=== PATIENT | male | born 1955 | race Caucasian/White ===

== ENCOUNTER → 2018-04-01 08:27 | Outpatient (CLI) | payer MEDICARE, BC, SELFPAY ==
[2018-04-01 10:27] LABS: Add Manual Diff / Slide Review NO; Basophils Percent Auto 0.5 % (0-2); Eosinophils Percent Auto 3.3 % (2-4); Hematocrit 44.1 % (41-53); Lymphocytes Percent Auto 31.5 % (25-40); Mean Corpuscular HGB Conc 34.1 % (30-36); Monocytes Percent Auto 11.3 % (3-14); Neutrophils Absolute Auto 3400 /uL (3000-5900); Neutrophils Percent Auto 53.4 % (50-75); Platelet Count 218 X10^3/uL (150-400); Red Blood Cell Count 4.69 X10^6/uL (4.5-5.9); Red Cell Distribution Width 13.2 % (11.6-14.8); White Blood Cell Count 6.3 X10^3/uL (4.5-11.0)
[2018-04-01 10:49] LABS: Alanine Aminotransferase 26 IU/L (21-72); Albumin 4.6 g/dL (3.5-5.0); Albumin Globulin Ratio 1.7 (1.0-2.8); Alkaline Phosphatase 51 U/L (38-126); Aspartate Aminotransferase 21 IU/L (17-59); BUN Creatinine Ratio 31.4 (6-22); Bilirubin Total 0.8 mg/dL (0.2-1.3); Blood Urea Nitrogen 22 mg/dL (9-20); Calcium 9.4 mg/dL (8.4-10.2); Carbon Dioxide 28 mmol/L (22-32); Chloride 101 mmol/L (98-107); Cholesterol 209 mg/dL (140-199); Estimated Glomerular Filt Rate > 60.0 mL/min (>60); Globulin 2.7 g/dL (1.7-4.1); Glucose 102 mg/dL (80-110); HDL Cholesterol 60 mg/dL (40-60); HEMOLYSIS < 15 (0-50); LDL Cholesterol Calculated 123 mg/dL (<100); Potassium 4.5 mmol/L (3.4-5.1); Sodium 139 mmol/L (137-145); Total Protein 7.3 g/dL (6.3-8.2); Triglycerides 128 mg/dL (35-150)
[2018-04-01 11:14] LABS: Prostate Specific Antigen Scrn 1.13 ng/mL (0.1-4.0)
[2018-04-01 11:15] LABS: Thyroid Stimulating Hormone 2.58 uIU/mL (0.47-4.68)
== END ==
PROVIDERS: PCP Family Medicine; Visit Provider Family Medicine
DX: E04.1 Nontoxic single thyroid nodule (principal); E78.2 Mixed hyperlipidemia; I10 Essential (primary) hypertension; R09.89 Other specified symptoms and signs involving the circulatory and respiratory systems
CPT/HCPCS: 36415; 80053; 80061; 84443; 85025; G0103

== ENCOUNTER → 2018-04-07 10:43 | Outpatient (CLI) | payer MEDICARE, OTHER, SELFPAY ==
--- NOTE | 2018-04-07 10:46 | DI.RAD.S_ITS ---
PROCEDURE: XR CHEST 2V INDICATIONS: sob TECHNIQUE: 2 views of the chest were acquired. COMPARISON: [facility], , CHEST 2 VIEW, 07/25/2013, 11:57. FINDINGS: Surgical changes and devices: Surgical plate on the humerus partially seen Lungs and pleura: No pleural effusions or pneumothorax. Lungs are clear. Mediastinum: Mediastinal contours are normal. Heart size is normal. Bones and chest wall: No suspicious bony abnormalities. Soft tissues appear unremarkable. IMPRESSION: No acute cardiopulmonary abnormality Dictated by: Chucky Thurman M.D. on 04/07/2018 at 12:43 Approved by: Chucky Thurman M.D. on 04/07/2018 at 12:45
== END ==
PROVIDERS: Family Provider Family Medicine; PCP Family Medicine; Visit Provider Family Medicine
DX: R06.02 Shortness of breath (principal)
CPT/HCPCS: 71046

== ENCOUNTER → 2020-02-09 14:33 | Outpatient (CLI) | payer MEDICARE, OTHER, SELFPAY ==
--- NOTE | 2020-02-09 14:37 | DI.RAD.S_ITS ---
PROCEDURE: XR FINGER RT MIN 2V INDICATIONS: injury/pain/ TECHNIQUE: AP hand, 2 views of the fifth finger(s) acquired. COMPARISON: None. FINDINGS: Bones: Volar plate fracture involving the base of the fifth middle phalanx seen best on the lateral view. Mild interphalangeal joint narrowing with periarticular osteophyte formation. Soft tissues: No suspicious soft tissue calcifications. IMPRESSION: Volar plate fracture involving the base of the fifth middle phalanx. Dictated by: Jin Ward [facility] Interpreted: Dulce Maria Oropeza MD on 02/09/2020 at 15:28 Approved by: Dulce Maria Oropeza MD, PhD on 02/09/2020 at 16:29
== END ==
PROVIDERS: Family Provider Family Medicine; PCP Family Medicine; Referring Provider Family Medicine; Visit Provider Family Medicine
DX: M79.644 Pain in right finger(s) (principal); S62.626A Displaced fracture of middle phalanx of right little finger, initial encounter for closed fracture; X58.XXXA Exposure to other specified factors, initial encounter
CPT/HCPCS: 73140

== ENCOUNTER → 2020-05-21 13:29 | Outpatient (CLI) | payer MEDICARE, OTHER, SELFPAY ==
[2020-05-22 14:16] LABS: COVID19 Sendout Not Detected (Not Detect)
== END ==
PROVIDERS: Family Provider Family Medicine; PCP Family Medicine; Visit Provider Physician Assistant
DX: Z11.59 Encounter for screening for other viral diseases (principal)
CPT/HCPCS: 87635

== ENCOUNTER → 2020-05-24 13:18 | Outpatient (CLI) | payer MEDICARE, OTHER, SELFPAY ==
--- NOTE | 2020-05-24 14:29 | PM.TREADMILL ---
Cardiac Stress Test Report Referral & Results Date Patient Seen: 05/24/20 Requesting provider: Sean Norman Indication: dyspnea Rest ECG: unremarkable Procedure Note: Today following both written and verbal informed consent, the patient was exercised according to a standard Georges protocol. The patient exercised for a total of my and 16 seconds achieving a maximum heart rate of 147. Patient's maximum systolic blood pressure was 190. This was an estimated 10.1 MET's. there are no ST-T segment changes Patient did have multifocal PVCs including couplets and in recovery also had a 9 beat run of nonsustained VT Patient's oxygen saturation varied between 93 and 96% for the duration of the monitoring period. Function aerobic impairment rates -20% on the sedentary scale or 120% of average Impression: no clear evidence of ischemia based on usual criteria Significant ventricular dysrhythmias above, suggest echo and consider longer cardiac monitoring such as 7-14 day Zio Please note: Actual ECG tracings can be found in the PACS system.
== END ==
PROVIDERS: Family Provider Family Medicine; PCP Family Medicine; Referring Provider Family Medicine; Visit Provider Family Medicine
DX: R06.00 Dyspnea, unspecified (principal); R06.02 Shortness of breath
CPT/HCPCS: 93016; 93017; 93018

== ENCOUNTER → 2020-06-03 09:33 | Outpatient (CLI) | payer MEDICARE, OTHER, SELFPAY ==
[2020-06-03 09:56] LABS: Add Manual Diff / Slide Review NO; Basophils Absolute Auto 100 /uL (0-100); Basophils Percent Auto 0.9 % (0-2); Eosinophils Absolute Auto 300 /uL (0-450); Eosinophils Percent Auto 5.1 % (2-4); Hematocrit 42.5 % (41-53); Hemoglobin 14.4 g/dL (13.5-17.5); Lymphocytes Absolute Auto 2100 /uL (1100-4500); Lymphocytes Percent Auto 34.2 % (25-40); Mean Corpuscular HGB Conc 33.8 % (30-36); Mean Corpuscular Hemoglobin 31.7 PG (26-34); Mean Corpuscular Volume 93.6 fL (80-100); Monocytes Absolute Auto 800 /uL (0-900); Monocytes Percent Auto 13.1 % (3-14); Neutrophils Absolute Auto 2800 /uL (1500-7000); Neutrophils Percent Auto 46.7 % (50-75); Platelet Count 203 X10^3/uL (150-400); Red Blood Cell Count 4.54 X10^6/uL (4.5-5.9); Red Cell Distribution Width 13.2 % (11.6-14.8); White Blood Cell Count 6.1 X10^3/uL (4.5-11.0)
[2020-06-03 10:09] LABS: Alanine Aminotransferase 26 IU/L (<50); Albumin 4.4 g/dL (3.5-5.0); Albumin Globulin Ratio 1.4 (1.0-2.8); Alkaline Phosphatase 57 U/L (38-126); Aspartate Aminotransferase 24 IU/L (17-59); BUN Creatinine Ratio 36.4 (6-22); Bilirubin Total 0.8 mg/dL (0.2-1.3); Blood Urea Nitrogen 24 mg/dL (9-20); Carbon Dioxide 28 mmol/L (22-32); Chloride 104 mmol/L (98-107); Cholesterol 202 mg/dL (140-199); Estimated Glomerular Filt Rate > 60.0 mL/min (>60); Globulin 3.2 g/dL (1.7-4.1); Glucose 103 mg/dL (80-110); HDL Cholesterol 56 mg/dL (40-60); HEMOLYSIS < 15 (0-50); LDL Cholesterol Calculated 121 mg/dL (<100); Potassium 4.7 mmol/L (3.4-5.1); Sodium 139 mmol/L (137-145); Total Protein 7.6 g/dL (6.3-8.2); Triglycerides 126 mg/dL (35-150)
[2020-06-03 10:39] LABS: Prostate Specific Antigen Scrn 1.28 ng/mL (0.1-4.0)
[2020-06-03 10:40] LABS: TSH w/ Reflex to FT4 1.92 uIU/mL (0.47-4.68)
== END ==
PROVIDERS: Family Provider Family Medicine; PCP Family Medicine; Referring Provider Family Medicine; Visit Provider Family Medicine
DX: E78.2 Mixed hyperlipidemia (principal)
CPT/HCPCS: 36415; 80053; 80061; 84443; 85025; G0103

== ENCOUNTER → 2020-06-11 08:00 | Outpatient (CLI) | payer MEDICARE, OTHER, SELFPAY ==
--- NOTE | 2020-06-11 08:02 | DI.ECHO.S_ITS ---
[facility]---------+ [facility] +---------+ : : [address] : : : : [id number] : : : : Phone: [phone]+ Echocardiogram Report + + :Name: ARNEL RANGEL Study Date: 06/11/2020 Height: 76 in : :[facility] Weight: 210 lb : : Gender: Male BSA: 2.3 m2 : :: 1955 Age: 65 yrs BP: 140/78 mmHg: :Reason For Study: ARRHYTHMIA : : Performed By: Carl Aguirre : :Referring: RICH PICHARDO : + + Interpretation Summary Left ventricular ejection fraction is estimated to be 35 +/- 5%. There is moderate global hypokinesis of the left ventricle. Procedure: A two-dimensional transthoracic echocardiogram with color flow and Doppler was performed. The study quality was technically good. There is no prior echocardiogram noted for this patient. The patient was in normal sinus rhythm during the exam. Left Ventricle: The left ventricle is normal in size. There is normal left ventricular wall thickness. Left ventricular ejection fraction is estimated to be 35 +/- 5%. There is moderate global hypokinesis of the left ventricle. Right Ventricle: The right ventricle is normal in size and function. Atria: The left atrium is moderately dilated. Right atrial size is normal. Mitral Valve: There is mild mitral annular calcification. There is trace mitral regurgitation. Aortic Valve: The aortic valve is trileaflet. The aortic valve opens well. No aortic regurgitation is present. Tricuspid Valve: The tricuspid valve is normal in structure and function. There is trace tricuspid regurgitation. The right ventricular systolic pressure is estimated to be at least 22 mmHg based on an estimated right atrial pressure of 3 mm Hg. Pulmonic Valve: The pulmonic valve is normal in structure and function. There is trace pulmonic regurgitation. Great Vessels: The aortic root is mildly dilated. The ascending aorta is mildly enlarged. The pulmonary artery is normal size. The IVC is of normal diameter and collapses greater than 50% with a sniff. This suggests a low right atrial pressure of 3 mm Hg. Pericardium/ Pleura There is no pericardial effusion. There is no pleural effusion. MMode/2D Measurements & Calculations LVIDd: 6.2 cm LVOT diam: 2.6 cm LVIDs: 4.6 cm Ao root diam: 4.6 cm FS: 24.9 % asc Aorta Diam: 3.7 cm EPSS: 1.6 cm Ao Arch Diam (Prox Trans): 3.2 cm IVSd: 0.78 cm LVPWd: 0.76 cm LV polanco. diameter/BSA (cm/m^2): 2.7 LV sys. diameter/BSA (cm/m^2): 2.1 LA dimension: 3.6 cm RA long axis: 4.9 cm LA A2 area: 29.9 cm2 RA area: 20.4 cm2 LA A4 area: 24.7 cm2 RA vol: 71.9 ml LA length (vol): 6.0 cm RA : 31.8 ml/m2 LA vol: 103.7 ml IVC diam: 1.6 cm LA vol index: 45.8 ml/m2 TAPSE: 2.4 cm Doppler Measurements & Calculations Ao V2 max: 114.5 cm/sec LVOT Max Bennett: 71.6 cm/sec Ao V2 mean: 89.9 cm/sec LV V1 max P.1 mmHg Ao max P.2 mmHg LV V1 VTI: 14.1 cm Ao mean P.4 mmHg ANKUR(I,D): 2.9 cm2 Ao V2 VTI: 25.2 cm ANKUR(V,D): 3.2 cm2 sev ratio: 0.56 ANKUR indexed to BSA (cm^2/m^2): 1.3 MV E max bennett: 70.2 cm/sec TR max bennett: 215.2 cm/sec MV A max bennett: 99.6 cm/sec TR max P.5 mmHg MV E/A: 0.71 PA V2 max: 78.4 cm/sec Med Peak E' Bennett: 4.2 cm/sec PA V2 mean: 57.5 cm/sec E/E' med: 16.7 PA mean P.4 mmHg Lat Peak E' Bennett: 3.8 cm/sec PA pr(Accel): 24.2 mmHg E/E' lat: 18.5 E/e' average: 17.6 MV dec time: 0.18 sec SV(LVOT): 73.1 ml Reading Physician:09:55 AM
== END ==
PROVIDERS: Family Provider Family Medicine; PCP Family Medicine; Referring Provider Family Medicine; Visit Provider Family Medicine
DX: I49.9 Cardiac arrhythmia, unspecified (principal); I77.89 Other specified disorders of arteries and arterioles
CPT/HCPCS: 93306

== ENCOUNTER → 2020-06-13 11:45 | Outpatient (CLI) | payer MEDICARE, OTHER, SELFPAY ==
--- NOTE | 2020-06-28 16:57 | PM.CARDMON.1 ---
[facility] Report Referral & Results Date Patient Seen: 06/13/20 Requesting provider: Sean Norman Indication: Arrhythmia Duration of monitoring (days): 7 Diary information: There were 5 patient triggered events and 2 patient diary entries Patient triggered events were associated with (within 45 seconds) sinus rhythm, PVCs, PACs, and ventricular bigeminy Patient diary entries were associated with sinus rhythm and PVCs Data: Minimum heart rate identified was 43 beats per minute at 08:01 on 06/15/2020 Maximum sinus heart rate was 133 beats per minute at 16:39 on 06/16/2020 Maximum overall heart rate was 190 beats per minute at 11:08 on 06/18/2020 during a 6 beat run of SVT Less than 1% of identified beats were supraventricular ectopic in origin. 3.3% of identified beats were ventricular ectopic in origin Patient had 1 run of nonsustained ventricular tachycardia lasting 4 beats at a rate of 134 beats per minute 12 runs of SVT were identified with the fastest being 6 beats at a rate of 190 in the longest lasting 14 seconds at a rate of 105 beats per minute, which suggest atrial tachycardia rather than true SVT Impression: Most significant dysrhythmia identified on this study is the occasional PVCs. 1 single run of nonsustained VT also present. Clinical correlation suggested
== END ==
PROVIDERS: Family Provider Family Medicine; PCP Family Medicine; Referring Provider Family Medicine; Visit Provider Family Medicine
DX: I49.9 Cardiac arrhythmia, unspecified (principal)
CPT/HCPCS: 0296T; 0298T

== ENCOUNTER → 2020-11-05 08:48 | Outpatient (CLI) | payer MEDICARE, OTHER, SELFPAY ==
[2020-11-05 09:39] LABS: Add Manual Diff / Slide Review NO; Basophils Absolute Auto 0 /uL (0-100); Basophils Percent Auto 0.5 % (0-2); Eosinophils Absolute Auto 400 /uL (0-450); Hematocrit 41.5 % (41-53); Hemoglobin 13.9 g/dL (13.5-17.5); Lymphocytes Absolute Auto 1600 /uL (1100-4500); Mean Corpuscular HGB Conc 33.6 % (30-36); Mean Corpuscular Hemoglobin 30.9 PG (26-34); Mean Corpuscular Volume 91.9 fL (80-100); Monocytes Absolute Auto 800 /uL (0-900); Monocytes Percent Auto 13.9 % (3-14); Neutrophils Absolute Auto 2800 /uL (1500-7000); Neutrophils Percent Auto 49.6 % (50-75); Platelet Count 200 X10^3/uL (150-400); Red Blood Cell Count 4.51 X10^6/uL (4.5-5.9); Red Cell Distribution Width 13.1 % (11.6-14.8); White Blood Cell Count 5.6 X10^3/uL (4.5-11.0)
[2020-11-05 10:02] LABS: BUN Creatinine Ratio 40.9 (6-22); Blood Urea Nitrogen 27 mg/dL (9-20); Calcium 9.2 mg/dL (8.4-10.2); Carbon Dioxide 28 mmol/L (22-32); Chloride 103 mmol/L (98-107); Cholesterol 148 mg/dL (140-199); Estimated Glomerular Filt Rate > 60.0 mL/min (>60); Glucose 119 mg/dL (80-110); HDL Cholesterol 47 mg/dL (40-60); HEMOLYSIS < 15 (0-50); LDL Cholesterol Calculated 90 mg/dL (<100); Potassium 4.6 mmol/L (3.4-5.1); Sodium 138 mmol/L (137-145); Triglycerides 57 mg/dL (35-150)
== END ==
PROVIDERS: Family Provider Family Medicine; PCP Student in an Organized Health Care Education/Training Program; Referring Provider Internal Medicine Cardiovascular Disease; Visit Provider Internal Medicine Cardiovascular Disease
DX: I10 Essential (primary) hypertension (principal); E78.5 Hyperlipidemia, unspecified
CPT/HCPCS: 36415; 80048; 80061; 85025

== ENCOUNTER → 2021-02-21 09:43 | Outpatient (CLI) | payer MEDICARE, OTHER, SELFPAY ==
--- NOTE | 2021-02-21 09:44 | DI.US.S_ITS ---
PROCEDURE: US ABD AORTA ANEURYSM SCREEN INDICATIONS: screening TECHNIQUE: Real time scanning was performed of the aorta and iliac arteries, with image documentation. COMPARISON: None. FINDINGS: Aorta: Proximal aortic diameter measures 1.9 cm. Mid-aorta measures 2.0 cm. Distal aortic diameter is 1.9 cm. Iliac arteries: Right common iliac artery measures 1.0 cm. Left common iliac artery measures 1.2 cm. IMPRESSION: No abdominal aortic or proximal common iliac artery aneurysm. Dictated by: Jin Ward [facility] Interpreted: Lexx Tafoya MD on 02/21/2021 at 10:27 Transcribed by: CROW on 02/21/2021 at 10:27 Approved by: Lexx Tafoya M.D. on 02/21/2021 at 11:57
== END ==
PROVIDERS: Family Provider Family Medicine; PCP Student in an Organized Health Care Education/Training Program; Referring Provider Student in an Organized Health Care Education/Training Program; Visit Provider Student in an Organized Health Care Education/Training Program
DX: Z13.6 Encounter for screening for cardiovascular disorders (principal); Z87.891 Personal history of nicotine dependence
CPT/HCPCS: 76706

== ENCOUNTER → 2021-06-04 09:08 | Outpatient (CLI) | payer MEDICARE, SELFPAY ==
[2021-06-04 11:33] LABS: COVID19 -Nasal RAPID Negative (Negative)
== END ==
PROVIDERS: Family Provider Family Medicine; PCP Student in an Organized Health Care Education/Training Program; Referring Provider Surgery; Visit Provider Surgery
DX: Z20.822 Contact with and (suspected) exposure to COVID-19 (principal); Z01.812 Encounter for preprocedural laboratory examination
CPT/HCPCS: 87635; C9803

== ENCOUNTER 2021-06-05 12:34 | Day surgery (SDC) | payer MEDICARE, OTHER, SELFPAY ==
[2021-06-05] VITALS (7 sets, daily range): BP systolic 108–131; BP diastolic 72–83; PULSE 64–71; RESP 12–14; TEMP 36.4–36.7; O2SAT 92–99; BMI 24.3
--- NOTE | 2021-06-05 | PATH_ITS ---
[facility] Accession Number: [id number] . 01 Material submitted: . colon - ASCENDING COLON POLYP . 02 Diagnosis: Ascending Colon Polyp: Tubular adenoma. MRV 06/09/2021 0947 Local . 02 Electronically signed: . Zulema Farias MD, Pathologist NPI- [id number] . 01 Gross description: . ASCENDING COLON POLYP: Received in formalin is 1 fragment(s) of phipps, soft tissue measuring 0.3 x 0.1 x 0.1 cm submitted entirely in 1 cassette(s) /ANKUR 06/06/2021 0253 Local . 02 Pathologist provided ICD-10: K63.5 . 02 CPT . 070767 Performed at: [address] [facility] [address] [id number] MD Harsh Puga MD Phone: [phone] Performed at: 02 [facility] [place] [address] [place], [place] [id number] MD Deirdre Tijerina MD Phone: [phone]
[2021-06-05] MEDS: LACTATED RINGERS 1,000 ML 200 ML IV (13:17)
--- NOTE | 2021-06-05 13:42 | P.HP_ITS ---
History of Present Illness History of Present Illness Date Patient Seen: 06/05/21 Time Patient Seen: 13:42 Chief complaint: SDC Narrative: The patient presents for colorectal sreening. Previous colonoscopy 11 years ago. No personal or family history of colon cancer. On further history denies any recent gastrointestinal symptoms. No nausea, vomiting, abdominal pain, loss of appetite, unexplained weight loss, change in bowel habits, diarrhea, constipation, melena, hematochezia, or bright red blood per rectum. Capable of 2 flights of stairs without shortness of breath chest Patient History Medical History Chicken pox Fractures (1980) Hepatitis (1968) Herpes (1973) Melanoma (~2007) Metal plate in left upper extremity (1979) Sleep apnea (2010) Surgical History Anesthesia History of melanoma excision (2007) History of surgery (1969) History of surgery on arm (1979) Family & Social History Family History Father Cancer MVA (motor vehicle accident) Mother Heart disease Grandfather Cancer Stomach cancer Sister Cancer Social History: household members spouse Tobacco & Substance use: Smoking Status Former smoker alcohol intake current alcohol intake frequency 0-2 drinks per day Substance Use Type marijuana Meds Home Medications and Allergies Home Medications Medication Instructions Recorded Confirmed Type losartan 50 mg tablet 25 mg PO .[facility]90 tab 08/14/20 06/05/21 Rx rosuvastatin 5 mg tablet 5 mg PO DAILY tab 08/14/20 06/05/21 History clonazepam 0.5 mg tablet 0.25 mg PO DAILY 06/05/21 06/05/21 History metoprolol succinate 50 mg 50 mg PO BID 06/05/21 06/05/21 History tablet,extended release 24 hr Allergies Allergy/AdvReac Type Severity Reaction Status Date / Time No Known Drug Allergies Allergy Verified 06/05/21 12:58 Exam Vital Signs (past 8 hours): - 06/05/21 13:03 Temperature 97.6 F Pulse Rate 66 Respiratory Rate 12 Blood Pressure 131/74 Pulse Oximetry 99 Oxygen Delivery Method Room Air Narrative Exam Narrative: Constitutional-he is oriented to person, place and time. No apparent distress Cardiovascular- regular rate, no peripheral edema Pulmonary-unlabored respiratory effort, no audible wheezing Abdominal-soft, non-tender, non-distended Musculoskeletal-no cyanosis or clubbing Neurological-nonfocal, normal strength throughout Skin-warm and dry Assessment & Plan Assessment and plan (1) Screening for colon cancer: Status: Acute Assessment & Plan narrative: The patient requires colorectal screening and colonoscopy is recommended. Technical details were discussed. Risks, benefits, alternatives explained. Risks including but not limited to myocardial infarction, aspiration, bleeding, pain, missed lesion, incomplete examination, need for further radiographic studies, colonic perforation, and need for major abdominal surgery were discussed. All questions were answered to their satisf action, and they are in agreement with this plan. Time Spent With Patient Critical Care time: I spent a total of [] minutes of critical care time on this patient's care today; this time is exclusive of procedural time.
[2021-06-05] MEDS: fentaNYL 250 MCG/5 ML INJ IV (13:51)
[2021-06-05] MEDS: MIDAZOLAM 5 MG/5 ML VIAL IV (13:51)
--- NOTE | 2021-06-05 14:01 | PM.OP.COLON ---
Operative Date/Time/Diagnoses Date of procedure: 06/05/21 Time of procedure: 14:01 Pre-op diagnosis: Screening colonoscopy Post-op diagnosis: same Procedure & Clinicians Study performed: Colonoscopy Same procedure as scheduled: Yes Indications: Screening Surgeon: Pacheco Gagnon Procedure Notes Procedure in detail: Medications: Conscious sedation using 5mg IV midazolam and 150mcg IV of fentanyl The history and physical was performed/updated and the patient is ASA class is 2. The procedure was discussed in detail with the patient. Potential risks complications including infection, bleeding, missed diagnosis, perforation, need for surgery, and were explained. Their questions were answered and informed consent was obtained. Patient was brought to the procedure room and placed standard monitoring equipment. The patient's vital signs were monitored continuously throughout the entire procedure. Prior to starting time-out was performed. The patient was placed in the left lateral recumbent position. Procedural sedation was administered. Examination began with a thorough inspection of the perianal area there was no evidence of fissures, fistulae, external hemorrhoids or cutaneous malignancy. The colonoscopy scope was then placed into the anal canal and was advanced to the cecum, which was identified by the ileocecal valve, the appendiceal orifice and the confluence of the taenia. The scope was then slowly withdrawn examining colon thoroughly in all directions, irrigating it of any residual stool. FINDINGS 1. <1 cm polyp within the ascending colon removed with biopsy forceps 2. sigmoid diverticulosis The patient tolerated the procedure well. They will be discharged once criteria are met. The prep was of good/excellent quality. The withdrawl time was 6 minutes. The sedation time was 15 minutes. Specimen(s): other (ascending colon) Complications: none Impression: colonic polyps Post-procedure Recommendations: Colonoscopy in 5 years Disposition: same day surgery
--- NOTE | 2021-06-05 14:47 | SUR.PHASEII ---
pt given discharge instructions. Pt states he understands discharge instructions. Pt denies pain and nausea. Pt had a gingerale to drink. No complaints voiced. No distress noted.
== END 2021-06-05 14:50 | disposition home or self-care (01) ==
PROVIDERS: Family Provider Family Medicine; PCP Student in an Organized Health Care Education/Training Program; Referring Provider Surgery; Visit Provider Surgery
PROC: 0DJD8ZZ Inspection of Lower Intestinal Tract, Via Natural or Artificial Opening Endoscopic (ICD-10-PCS; CPT 45378; principal; 2021-06-05 13:45)
DX: Z12.11 Encounter for screening for malignant neoplasm of colon (principal); G47.30 Sleep apnea, unspecified; K57.30 Diverticulosis of large intestine without perforation or abscess without bleeding; D12.2 Benign neoplasm of ascending colon
CPT/HCPCS: 45380; 99152; J2250; J3010

== ENCOUNTER → 2021-12-26 11:23 | Outpatient (CLI) | payer MEDICARE, OTHER, SELFPAY ==
[2021-12-26 13:21] LABS: COVID19 -Nasal RAPID Negative (Negative)
== END ==
PROVIDERS: Family Provider Family Medicine; PCP Student in an Organized Health Care Education/Training Program; Visit Provider Family Medicine Sleep Medicine
DX: Z20.822 Contact with and (suspected) exposure to COVID-19 (principal)
CPT/HCPCS: 87635; C9803

== ENCOUNTER → 2021-12-29 09:43 | Outpatient (CLI) | payer MEDICARE, OTHER, SELFPAY ==
--- NOTE | 2021-12-29 | DI.NM.S_ITS ---
PROCEDURE: NM CHELA PERF SPECT REST & STR Rest and exercise myocardial perfusion SPECT with gated imaging and ejection fraction RADIOPHARMACEUTICAL: 10.8 mCi Tc-99m sestamibi IV at rest and 24.7 mCi Tc-99m sestamibi IV at peak exercise. A one day-protocol was performed. INDICATIONS: Ventricular tachycardia; Cardiomyopathy TECHNIQUE: Radiopharmaceutical was injected at peak stress test, and also at rest. SPECT images were obtained. SPECT myocardial perfusion images were displayed in short axis, horizontal long axis, and vertical long axis views. Gated images were reviewed using [employer] software. COMPARISON: None. CARDIAC STRESS: A standard Georges treadmill exercise tolerance test was performed by the patient under the supervision of an attending staff. The patient exercised for 10 minutes and 30 seconds; functional aerobic impairment (LEXI) is -36%. Hemodynamic data: There is normal blood pressure and heart rate response to exercise stress. Patient achieved 89% of maximum predicted heart rate at peak exercise. Symptoms: Patient denied chest pain during exercise. EKG: No diagnostic EKG changes of ischemia; occasional PVCs during the study. FINDINGS: Raw data: There is good myocardial labeling by radiotracer. No significant motion artifacts. Left ventricle function: Gated images demonstrate normal left ventricle wall thickening. No segmental wall motion abnormality. No transient ischemic dilation; TID is 0.95 (normal less than 1.3). The left ventricle resting end-diastolic volume is 165 mL. Left ventricle stress ejection fraction is 58%; normal values are above 45%. Myocardial perfusion: There is moderately intense inferior wall defect that improves with stress and improves further with stress prone imaging, suggesting probably attenuation artifact but prior non-transmural infarct can't be definitively excluded. No ischemia. IMPRESSION: Low risk, probably normal treadmill nuclear stress test. 1) There is moderately intense inferior wall defect that improves with stress and improves further with stress prone imaging, suggesting probably attenuation artifact but prior non-transmural infarct can't be definitively excluded. No ischemia. 2) Enlarged left ventricle (LVEDV 165cc) with normal systolic function (EF post stress 58%). 3) No ST changes with exercise. 4) No angina during the study. 5) Good exercise tolerance (11.2 METs, LEXI -36%). Target heart rate achieved. Appropriate BP response to exercise. 6) No prior nuclear stress test available for comparison. Dictated by: Bennie Wagner MD on 12/29/2021 at 16:16 Approved by: Bennie Wagner MD on 12/29/2021 at 16:20
--- NOTE | 2021-12-29 15:20 | PM.TREADMILL ---
Cardiac Stress Test Report Referral & Results Date Patient Seen: 12/29/21 Time Patient Seen: 15:20 Requesting provider: Bennie Wagner Indication: Ventricular tachycardia, cardiomyopathy Rest ECG: Sinus rhythm Procedure Note: Standard Georges protocol, 10:30 mins, 11.2 METS Very good exercise capacity, LEXI -36% Normal hemodynamic response to exercise No chest pain or anginal symptoms No significant ST changes at peak exercise Frequent PVCs Impression: Normal exercise stress test Nuclear images pending Please note: Actual ECG tracings can be found in the PACS system.
== END ==
PROVIDERS: Family Provider Family Medicine; PCP Student in an Organized Health Care Education/Training Program; Referring Provider Internal Medicine Cardiovascular Disease; Visit Provider Internal Medicine Cardiovascular Disease
DX: I47.2 Ventricular tachycardia (principal); I42.9 Cardiomyopathy, unspecified
CPT/HCPCS: 78452; 93017; A9502

== ENCOUNTER → 2022-03-11 14:15 | Outpatient (CLI) | payer MEDICARE, OTHER, SELFPAY ==
[2022-03-12 04:32] LABS: BUN Creatinine Ratio 34.2 (6-22); Blood Urea Nitrogen 25 mg/dL (9-20); Calcium 8.9 mg/dL (8.4-10.2); Carbon Dioxide 25 mmol/L (22-32); Chloride 105 mmol/L (98-107); Estimated Glomerular Filt Rate > 60 mL/min (>60); Glucose 107 mg/dL (80-110); HEMOLYSIS < 15 (0-50); Sodium 139 mmol/L (137-145)
[2022-03-12 05:04] LABS: Prostate Specific Antigen Scrn 1.16 ng/mL (0.1-4.0)
== END ==
PROVIDERS: Family Provider Family Medicine; PCP Student in an Organized Health Care Education/Training Program; Referring Provider Student in an Organized Health Care Education/Training Program; Visit Provider Student in an Organized Health Care Education/Training Program
DX: Z12.5 Encounter for screening for malignant neoplasm of prostate (principal); I10 Essential (primary) hypertension
CPT/HCPCS: 36415; 80048; G0103

== ENCOUNTER → 2024-05-04 08:41 | Outpatient (CLI) | payer MEDICARE, OTHER, SELFPAY ==
[2024-05-04 09:57] LABS: Hematocrit 40.2 % (41-53); Hemoglobin 13.8 g/dL (13.5-17.5); Mean Corpuscular HGB Conc 34.2 % (30-36); Mean Corpuscular Hemoglobin 31.9 PG (26-34); Mean Corpuscular Volume 93.2 fL (80-100); Platelet Count 212 X10^3/uL (150-400); Red Blood Cell Count 4.31 X10^6/uL (4.5-5.9); Red Cell Distribution Width 13.5 % (11.6-14.8); White Blood Cell Count 6.3 X10^3/uL (4.5-11.0)
[2024-05-04 10:20] LABS: Alanine Aminotransferase 28 IU/L (<50); Albumin 4.3 g/dL (3.5-5.0); Albumin Globulin Ratio 1.7 (1.0-2.8); Alkaline Phosphatase 51 U/L (38-126); Aspartate Aminotransferase 23 IU/L (17-59); BUN Creatinine Ratio 34.2 (6-22); Bilirubin Total 0.6 mg/dL (0.2-1.3); Blood Urea Nitrogen 25 mg/dL (9-20); Carbon Dioxide 26 mmol/L (22-32); Chloride 105 mmol/L (98-107); Cholesterol 186 mg/dL (140-199); Estimated Glomerular Filt Rate > 60 mL/min (>60); Globulin 2.5 g/dL (1.7-4.1); Glucose 102 mg/dL (80-110); HDL Cholesterol 53 mg/dL (40-60); HEMOLYSIS < 15 (0-50); LDL Cholesterol Calculated 90 mg/dL (<100); Potassium 4.6 mmol/L (3.4-5.1); Sodium 139 mmol/L (137-145); Total Protein 6.8 g/dL (6.3-8.2); Triglycerides 215 mg/dL (35-150)
== END ==
LOC: LAB 08:44
PROVIDERS: PCP Family Medicine; Referring Provider Internal Medicine Cardiovascular Disease; Visit Provider Internal Medicine Cardiovascular Disease
DX: I10 Essential (primary) hypertension (principal); E78.5 Hyperlipidemia, unspecified; I42.9 Cardiomyopathy, unspecified
CPT/HCPCS: 36415; 80053; 80061; 85027

== ENCOUNTER → 2024-10-09 14:14 | Outpatient (CLI) | payer MEDICARE, OTHER, SELFPAY ==
--- NOTE | 2024-10-09 14:16 | DI.RAD.S_ITS ---
PROCEDURE: XR CHEST 2V INDICATIONS: Cough TECHNIQUE: 2 views of the chest were acquired. COMPARISON: [facility], CR, XR CHEST 2V, 04/07/2018, 10:23. FINDINGS: Surgical changes and devices: None. Lungs and pleura: Lungs are clear. No pleural effusions or pneumothorax. Mediastinum: Mediastinal contours are normal. Heart size is normal. Bones and chest wall: No suspicious bony abnormalities. Soft tissues appear unremarkable. IMPRESSION: No acute cardiopulmonary abnormality is seen. Dictated by: Randal Sutton M.D. on 10/09/2024 at 22:55 Approved by: Randal Sutton M.D. on 10/09/2024 at 22:55
== END ==
PROVIDERS: PCP Family Medicine; Referring Provider Nurse Practitioner Family; Visit Provider Nurse Practitioner Family
DX: R05.9 Cough, unspecified (principal)
CPT/HCPCS: 71046